=== PATIENT | male | born 1960 | race Caucasian/White ===

== ENCOUNTER → 2018-06-08 | Outpatient (CLI) | payer BC ==
[~2018-06-08] MED LIST: CELE200C PO; CYCL-259 PO; HYDR-3245 PO; RANI150T23 PO
[2018-06-08 08:47] LABS: MICROSCOPIC NOT IND
[2018-06-08 08:56] LABS: CULTURE INDICATED? NO
[2018-06-08 08:57] LABS: BASOPHILS # (AUTO) 0.03 x10^3/uL (0-0.1); BASOPHILS % (AUTO) 1 % (0-1); EOSINOPHILS # (AUTO) 0.08 x10^3/uL (0-0.4); EOSINOPHILS % (AUTO) 2 % (1-7); LYMPHOCYTES # (AUTO) 1.97 x10^3/uL (1-3.4); LYMPHOCYTES % (AUTO) 43 % (22-44); MD NO; MEAN CORPUSCULAR HEMOGLOBIN 31.1 pg (27.5-34.5); MEAN CORPUSCULAR HGB CONC 33.6 g/dL (33.2-36.2); MEAN CORPUSCULAR VOLUME 92.5 fL (81-97); MEAN PLATELET VOLUME 8.4 fL (7.4-10.4); MONOCYTES # (AUTO) 0.46 x10^3/uL (0.2-0.8); MONOCYTES % (AUTO) 10 % (2-9); NEUTROPHILS # (AUTO) 2.11 x10^3/uL (1.8-6.8); NEUTROPHILS % (AUTO) 45 % (42-75); PLATELET COUNT 242 x10^3/uL (130-400); RED BLOOD COUNT 4.59 x10^6/uL (4.38-5.82); RED CELL DISTRIBUTION WIDTH 13.1 % (9.4-14.8)
[2018-06-08 08:58] LABS: ANION GAP 6 mmol/L (5-15); CALCIUM 9.4 mg/dL (8.5-10.1); CHLORIDE 105 mmol/L (98-107); CREATININE 0.94 mg/dL (0.7-1.3)
[2018-06-08 09:03] LABS: PROTHROMBIN TIME 10.6 Seconds (9.6-11.5)
== END | disposition home or self-care (01) ==
LOC: STAR 07:57
PROVIDERS: ATTEND Neurological Surgery
DX: Z01.818 Encounter for other preprocedural examination (principal); M51.26 Other intervertebral disc displacement, lumbar region; M41.86 Other forms of scoliosis, lumbar region; M51.36 Other intervertebral disc degeneration, lumbar region
CPT/HCPCS: 36415; 71046; 72110; 80048; 81003; 85025; 85610; 85730; 93005